=== PATIENT | male | born 1990 | race Caucasian/White ===

== ENCOUNTER 2021-04-07 07:13 | Emergency (ER) | payer BC ==
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
[2021-04-07] MEDS ORDERED: HYDROmorphone 2 MG/ML VIAL IM STA (07:51)
[2021-04-07] MEDS ORDERED: KETOROLAC 15 MG/ML VIAL IM STA (07:51)
--- NOTE | 2021-04-07 08:16 | XRAY Report ---
PROCEDURE: Ankle 3 View RT INDICATIONS: trauma TECHNIQUE: 3 views of the ankle were acquired. COMPARISON: None FINDINGS: Bones: Mildly displaced, spiral type, comminuted fracture of distal tibia. Soft tissues: No tibiotalar joint effusion. Achilles tendon appears normal. IMPRESSION: Distal tibia fracture. Reviewed by: Tawnya Mooney MD, PhD on 04/07/2021 8:15 AM PDT Approved by: Tawnya Mooney MD, PhD on 04/07/2021 8:15 AM PDT Station ID: [id number]
--- NOTE | 2021-04-07 08:17 | XRAY Report ---
PROCEDURE: Tib/Fib RT INDICATIONS: trauma TECHNIQUE: 2 views of the tibia and fibula were acquired. COMPARISON: None FINDINGS: Bones: Comminuted, mildly displaced, spiral type fracture of the distal tibia. Soft tissues: No suspicious soft tissue calcifications or masses. IMPRESSION: Distal tibia fracture. Reviewed by: Tawnya Mooney MD, PhD on 04/07/2021 8:16 AM PDT Approved by: Tawnya Mooney MD, PhD on 04/07/2021 8:16 AM PDT Station ID: [id number]
[2021-04-07 09:13] VITALS: BP 147/95
== END 2021-04-07 10:13 | disposition home or self-care (01) ==
LOC: ED 07:13
DX: S82.391A Other fracture of lower end of right tibia, initial encounter for closed fracture (principal); W01.0XXA Fall on same level from slipping, tripping and stumbling without subsequent striking against object, initial encounter; Y93.55 Activity, bike riding; Y92.410 Unspecified street and highway as the place of occurrence of the external cause
CPT/HCPCS: 29515; 73590; 73610; 96372; 99283; J1170

== ENCOUNTER 2021-04-15 14:21 | Outpatient (CLI) | payer BC ==
--- NOTE | 2021-04-15 16:59 | XRAY Report ---
PROCEDURE: Ankle 2 View RT INDICATIONS: FX OF DISTAL R TIBIA TECHNIQUE: 2 views of the ankle were acquired. COMPARISON: Ankle plain films 04/07/2021 FINDINGS: Bones: No fractures or dislocations. Ankle mortise is normally aligned. No suspicious bony lesions . Soft tissues: No tibiotalar joint effusion. Achilles tendon appears normal. IMPRESSION: Distal tibial metadiaphyseal junction fracture casted in near normal anatomic alignment. Reviewed by: Keon Coto MD on 04/15/2021 4:58 PM PDT Approved by: Keon Coto MD on 04/15/2021 4:58 PM PDT Station ID: [id number]
== END 2021-04-15 23:59 | disposition home or self-care (01) ==
LOC: DI.N 14:21
PROVIDERS: ATTEND Orthopaedic Surgery
DX: S82.391A Other fracture of lower end of right tibia, initial encounter for closed fracture (principal)

== ENCOUNTER 2021-04-24 18:23 | Outpatient (CLI) | payer BC ==
--- NOTE | 2021-04-24 11:31 | XRAY Report ---
PROCEDURE: Ankle 3 View RT INDICATIONS: FX OF LOWER END OF R TIBIA TECHNIQUE: 3 views of the ankle were acquired. COMPARISON: 04/15/2021 FINDINGS: Bones: Casted, comminuted, spiral distal shaft fracture of the tibia, not significantly changed in ap pearance. Fracture does involve the posterior malleolus and extending to the posterior aspect of the articular surface. Ankle mortise is normally aligned. No suspicious bony lesions. Soft tissues: No tibiotalar joint effusion. Achilles tendon appears normal. IMPRESSION: Unchanged appearance of comminuted spiral distal shaft fracture of the tibia, involving the posterior malleolus and extending to the posterior aspect of the articular surface. Reviewed by: Cheng Pena MD on 04/24/2021 11:29 AM PDT Approved by: Cheng Pena MD on 04/24/2021 11:29 AM PDT Station ID: [id number]
== END 2021-04-24 18:24 | disposition home or self-care (01) ==
LOC: DI.N 18:23
PROVIDERS: ATTEND Orthopaedic Surgery
DX: S82.391D Other fracture of lower end of right tibia, subsequent encounter for closed fracture with routine healing (principal)

== ENCOUNTER 2021-05-15 10:30 | Outpatient (CLI) | payer BC ==
--- NOTE | 2021-05-15 18:09 | XRAY Report ---
PROCEDURE: Tib/Fib RT INDICATIONS: FX OF DISTAL R TIBIA TECHNIQUE: 2 views of the tibia and fibula were acquired. COMPARISON: Prior lower leg series dated 04/24/2021 FINDINGS: Bones: No significant interval change in the comminuted spiral fracture involving the distal shaft of the tibia when compared to prior examination. Small butterfly component again noted over the medial aspect of the distal tibia. No suspicious bony lesions. Soft tissues: No suspicious soft tissue calcifications or masses. IMPRESSION: No significant change in the comminuted spiral fracture involving the distal shaft of the tibia mary red to prior examination. Reviewed by: WALKER Iverson on 05/15/2021 6:08 PM PDT Approved by: Edwardo Ball on 05/15/2021 6:08 PM PDT Station ID: [id number]
== END 2021-05-15 23:59 | disposition home or self-care (01) ==
LOC: DI.N 10:30
PROVIDERS: ATTEND Orthopaedic Surgery
DX: S82.391D Other fracture of lower end of right tibia, subsequent encounter for closed fracture with routine healing (principal)

== ENCOUNTER 2021-06-23 16:00 | Outpatient (CLI) | payer BC ==
--- NOTE | 2021-06-23 11:00 | XRAY Report ---
PROCEDURE: Tib/Fib RT INDICATIONS: FRACTURE OF LOWER END OF RIGHT TIBIA TECHNIQUE: 2 views of the tibia and fibula were acquired. COMPARISON: Right lower leg 05/15/2021, right ankle 04/24/2021, 04/15/2021, 04/07/2021. FINDINGS: Bones: There is progressive healing of a spiral fracture of the distal tibial diaphysis. No interval change in alignment. There is mild callus formation along the fracture margins. The fracture lines a re increasingly indistinct but remain visible. Ankle mortise demonstrates preserved alignment. The fi bula is intact. Soft tissues: There is a persistent tibiotalar joint effusion. No suspicious soft tissue calcificati ons or masses. IMPRESSION: 1. Progressive healing of distal tibial fracture without change in alignment. Reviewed by: Anthony Mauro MD on 06/23/2021 10:59 AM PDT Approved by: Anthony Mauro MD on 06/23/2021 10:59 AM PDT Station ID: [id number]
== END 2021-06-23 16:01 | disposition home or self-care (01) ==
LOC: DI.N 16:00
PROVIDERS: ATTEND Orthopaedic Surgery
DX: S82.391D Other fracture of lower end of right tibia, subsequent encounter for closed fracture with routine healing (principal)

== ENCOUNTER 2021-08-04 07:45 | Outpatient (CLI) | payer BC ==
--- NOTE | 2021-08-04 08:29 | XRAY Report ---
PROCEDURE: Tib/Fib RT INDICATIONS: FX OF LOWER END OR RIGHT TIBIA TECHNIQUE: 2 views of the tibia and fibula were acquired. COMPARISON: Right leg radiographs 06/23/2021, 05/15/2021. FINDINGS: Bones: Stable appearance of the comminuted spiral fracture of the distal tibia. Small butterfly compo nent at the medial aspect with mild displacement is unchanged. There is incomplete union. Slight decr eased conspicuity of the fracture lines. No proximal fracture. No dislocation. No suspicious bony les ions. Soft tissues: No suspicious soft tissue calcifications or masses. IMPRESSION: Stable comminuted spiral fracture of the distal tibia. Stable alignment. Reviewed by: Raymundo Dodge MD on 08/04/2021 8:27 AM PST Approved by: Raymundo Dodge MD on 08/04/2021 8:27 AM PST Station ID: [id number]
== END 2021-08-04 23:59 | disposition home or self-care (01) ==
LOC: DI.N 07:45
PROVIDERS: ATTEND Orthopaedic Surgery
DX: S82.301D Unspecified fracture of lower end of right tibia, subsequent encounter for closed fracture with routine healing (principal)

== ENCOUNTER 2021-09-22 07:45 | Outpatient (CLI) | payer BC ==
--- NOTE | 2021-09-22 08:18 | XRAY Report ---
PROCEDURE: Tib/Fib RT INDICATIONS: OTHER FX OF LOWER END OF RIGHT TIBIA TECHNIQUE: 2 views of the tibia and fibula were acquired. COMPARISON: X-ray lower extremity 08/04/2021 FINDINGS: Bones: There is an unchanged alignment of comminuted distal diaphyseal tibial fracture. There is mini mal interval callus formation. Fracture lucencies are minimally less prominent. Suspicious bony lesio ns. Soft tissues: No suspicious soft tissue calcifications or masses. IMPRESSION: Minimal interval healing with stable alignment of distal tibial diaphyseal fracture. Reviewed by: Rachel Chen MD on 09/22/2021 8:17 AM PST Approved by: Rachel Chen MD on 09/22/2021 8:17 AM PST Station ID: [id number]
== END 2021-09-22 23:59 | disposition home or self-care (01) ==
LOC: DI.N 07:45
PROVIDERS: ATTEND Orthopaedic Surgery
DX: S82.391D Other fracture of lower end of right tibia, subsequent encounter for closed fracture with routine healing (principal)